=== PATIENT | male | born 1965 | race Caucasian/White ===

== ENCOUNTER → 2017-07-12 | Outpatient (CLI) | payer OTHER ==
--- NOTE | 2017-07-12 12:05 | KCIC ---
Examination: 3 views of the left shoulder and 2 views of the left humerus HISTORY: History of shoulder fracture status post fall in January COMPARISON: None available FINDINGS: There is displaced fracture of the humerus neck with superior displacement of the distal fractured portion of the humerus neck. The head of the humerus projects in the region of the glenoid. No obvious bony bridging changes identified at the fracture site. Mild degenerative changes acromioclavicular joint. IMPRESSION: Displaced fracture of the neck of the humerus. No obvious bony bridging changes identified at the fracture site. Comparison is recommended to prior exam. A follow-up CT may be useful for better evaluation. Electronically signed by: Moises Schwab MD (07/12/2017 12:01 PM) [id number]
== END | disposition home or self-care (01) ==
LOC: KCIC 10:02
PROVIDERS: ATTEND Family Medicine
DX: S42.92XD Fracture of left shoulder girdle, part unspecified, subsequent encounter for fracture with routine healing (principal); S42.302D Unspecified fracture of shaft of humerus, left arm, subsequent encounter for fracture with routine healing; X58.XXXD Exposure to other specified factors, subsequent encounter
CPT/HCPCS: 73030; 73060